=== PATIENT | female | born 2000 | race African-American/Black ===

== ENCOUNTER 2024-11-18 21:18 | Emergency (ER) | payer MEDICAID ==
[~2024-11-18] VITALS: Ht 172.7 cm; Wt 54.4 kg
[2024-11-18 22:08] VITALS: O2SAT 100
[2024-11-18 22:21] LABS: HEMOGLOBIN. 14.3 g/dL (12.0-16.0); MEAN CORPUSCULAR HGB CONC 33.9 g/dL (31.0-37.0); MEAN CORPUSCULAR VOLUME 94.1 fL (81.0-99.0); MEAN PLATELET VOLUME 7.7 fl (7.4-10.4); PLATELET 248 x1000/uL (130-400); RED BLOOD CELL COUNT 4.46 mill/uL (4.2-5.4); RED CELL DISTRIBUTION WIDTH 12.4 % (11.6-14.6); WHITE BLOOD COUNT 15.5 x1000/uL (4.5-11.0)
[2024-11-18 22:22] LABS: DIFFERENTIAL COMMENT 1
[2024-11-18 22:37] LABS: CHLORIDE 104 mEq/L (98-107); POTASSIUM 4.3 mEq/L (3.5-5.1); SODIUM 139 mEq/L (136-145)
[2024-11-18 22:37] LABS: CLARITY URINE CLOUDY (CLEAR); COLOR URINE DARK YELLOW (YELLOW); GLUCOSE URINE NEGATIVE (NEGATIVE); KETONES URINE 2+ (NEGATIVE); LEUKOCYTE ESTERASE URINE 1+ (NEGATIVE); NITRITE URINE NEGATIVE (NEGATIVE); OCCULT BLOOD URINE 1+ (NEGATIVE); PH URINE 5.5 (4.5-8.0); PROTEIN URINE 2+ (NEGATIVE); SPECIFIC GRAVITY URINE 1.038 (1.005-1.030)
[2024-11-18 22:38] LABS: CARBON DIOXIDE 22 mEq/L (21-32)
[2024-11-18 22:39] LABS: PLATELET ESTIMATE NORMAL
[2024-11-18 22:40] LABS: HCG SCREEN NEGATIVE
[2024-11-18 22:43] LABS: CREATININE 0.9 mg/dL (0.6-1.0); GLUCOSE 136 mg/dL (70-105); UREA NITROGEN BLOOD 11 mg/dL (9-23)
[2024-11-18 22:45] LABS: ALANINE AMINOTRANSFERASE 44 IU/L (10-49); ALBUMIN 4.7 g/dL (3.2-4.8); ASPARTATE AMINOTRANSFERASE 27 IU/L (<34); BILIRUBIN DIRECT 0.5 mg/dL (<=3.0); BILIRUBIN TOTAL 1.4 mg/dL (0.1-1.0); PROTEIN TOTAL 7.4 g/dL (6.0-8.3)
[2024-11-18] MEDS ORDERED: HYDROCODONE/ACETAMINOPHEN 5/325MG TABLET PO ONE (23:00)
[2024-11-18 23:07] LABS: BACTERIA URINE 2+; SQUAMOUS EPITHELIAL CELL URINE 2+ /lpf (RARE/1+)
[2024-11-19] MEDS: HYDROCODONE/ACETAMINOPHEN 5/325MG TABLET PO NR (00:55)
[2024-11-19] MEDS: KETOROLAC 30MG/ML VIAL IM ONE (03:15)
[2024-11-19] MEDS ORDERED: IBUP-2029 MT (04:53)
[2024-11-19] MEDS ORDERED: NITR-87 MT (04:53)
[2024-11-19 05:00] VITALS: BP 109/60; PULSE 90; RESP 18; TEMP 36.94740; O2SAT 100
== END 2024-11-19 05:00 | disposition home or self-care (01) ==
LOC: ER 21:18
DX: N39.0 Urinary tract infection, site not specified (principal); R10.30 Lower abdominal pain, unspecified
CPT/HCPCS: 80076; 80048; 81003; 81025; 84703; 85025; 86850; 86900; 86901; 36415; 99285; 74176; 76830; 76856; 96372; J1885; Z7610